=== PATIENT | male | born 1945 | race Caucasian/White ===

== ENCOUNTER 2019-09-05 06:31 | Inpatient (IN) | payer OTHER ==
[~2019-09-05] VITALS: Ht 182.9 cm; Wt 79.8 kg
[2019-09-05] MEDS ORDERED: TESTIM5 GM TOP (07:21)
[2019-09-05] MEDS ORDERED: CIPRO500 MG PO (07:21)
== END 2019-09-09 15:52 | disposition home or self-care (01) | DRG 728 ==
LOC: ER 06:31 → MEDJ 15:56 → MEDI 09-07 11:33
PROVIDERS: ADMIT Internal Medicine; ATTEND Internal Medicine
PROC: BT40ZZZ Ultrasonography of Bladder (ICD-10-PCS; principal; 2019-09-06)
DX: N41.0 Acute prostatitis (principal); E87.1 Hypo-osmolality and hyponatremia; D61.818 Other pancytopenia; N39.0 Urinary tract infection, site not specified; D69.6 Thrombocytopenia, unspecified; Z20.828 Contact with and (suspected) exposure to other viral communicable diseases; R33.8 Other retention of urine